=== PATIENT | male | born 1990 | race Two or more races ===

== ENCOUNTER 2021-01-30 14:03 | Emergency (ER) | payer OTHER ==
[~2021-01-30] VITALS: Ht 170.2 cm; Wt 59.0 kg
[2021-01-30 14:33] VITALS: BP 126/98
[2021-01-30] MEDS ORDERED: ACETAMINOPHEN 500 MG TAB PO ONE (15:15)
== END 2021-01-30 15:22 | disposition home or self-care (01) ==
LOC: ER 14:03
DX: S00.03XA Contusion of scalp, initial encounter (principal); W20.8XXA Other cause of strike by thrown, projected or falling object, initial encounter; Y93.89 Activity, other specified; Y92.89 Other specified places as the place of occurrence of the external cause; Y99.8 Other external cause status
CPT/HCPCS: 70450